=== PATIENT | male | born 1980 ===

== ENCOUNTER → 2025-03-20 13:55 | Outpatient (REF) | payer BC, SELFPAY | LOC: HWEVLT 13:55 | PROVIDERS: ATTENDING PHYSICIAN Radiology Vascular & Interventional Radiology | DX: I83.892 Varicose veins of left lower extremity with other complications (principal) | CPT/HCPCS: 93971 ==

== ENCOUNTER → 2025-08-21 08:01 | Outpatient (REF) | payer BC, SELFPAY | LOC: HWEVLT 08:01 | PROVIDERS: ATTENDING PHYSICIAN Radiology Diagnostic Radiology | DX: I83.892 Varicose veins of left lower extremity with other complications (principal) | CPT/HCPCS: 36471 ==